=== PATIENT | female | born 1960 | race American Indian/Alaskan Native ===

== ENCOUNTER 2017-03-31 08:24 | Emergency (ER) | payer SELFPAY ==
[~2017-03-31] VITALS: Ht 160 cm; Wt 81.6 kg
[2017-03-31] MEDS ORDERED: IBUPROFEN 600 MG TAB PO STA (09:09)
== END 2017-03-31 09:22 | disposition home or self-care (01) ==
LOC: FSED 08:24
DX: S96.812A Strain of other specified muscles and tendons at ankle and foot level, left foot, initial encounter (principal); Y93.89 Activity, other specified; F41.9 Anxiety disorder, unspecified; F32.9 Major depressive disorder, single episode, unspecified
CPT/HCPCS: 99282